=== PATIENT | female | born 1990 | race Caucasian/White ===

== ENCOUNTER 2025-08-16 10:23 | Outpatient (CLI) | payer BC ==
[2025-08-16 11:12] LABS: #Basophils 0.05 10x3/uL (0.0-0.2); #Eosinophils 0.18 10x3/uL (0.0-0.7); #Monocytes 0.36 10x3/uL (0.11-0.59); #Neutrophils 3.35 10x3/uL (1.40-6.50); %Basophils 0.8 % (0.0-1.0); %Eosinophils 3.0 % (0.0-10.0); %Lymphocytes 33.8 % (21.0-51.0); %Monocytes 6.0 % (0.0-10.0); %Neutrophils 56.2 % (42.0-75.0); Hematocrit 35.1 % (36.0-47.0); Hemoglobin 11.0 g/dL (12.0-16.0); Mean Corpuscular Hemoglobin 25.8 pg (27.0-31.0); Mean Corpuscular Volume 82.2 fL (78.0-98.0); Platelet Count 323 10x3/uL (130-400); Red Blood Cell (RBC) Count 4.27 mill/uL (4.20-5.40); White Blood Cell (WBC) Count 5.97 10x3/uL (4.8-10.8)
[2025-08-16 11:26] LABS: INR-International Normal Ratio 1.0; Prothrombin Time 13.2 sec (12.0-14.7)
[2025-08-16 11:27] LABS: PTT 33.4 sec (22.9-36.1)
[2025-08-16 11:33] LABS: BHCG - Serum Negative (NEGATIVE); Pregs Control Background? CLEAR/WHITE (CLR/WHITE); Pregs Control Bar Appear? YES (CONTROL BAR)
== END 2025-08-16 10:24 | disposition home or self-care (01) ==
LOC: LABBT 10:23
PROVIDERS: ATTEND Orthopaedic Surgery
DX: Z01.812 Encounter for preprocedural laboratory examination (principal); G56.01 Carpal tunnel syndrome, right upper limb; G56.21 Lesion of ulnar nerve, right upper limb
CPT/HCPCS: 84703; 85025; 85610; 85730

== ENCOUNTER 2025-08-18 09:09 | Day surgery (SDC) | payer BC ==
[2025-08-16 10:36] VITALS: BMI 23.3
[2025-08-18] MEDS ORDERED: fentaNYL PF 100 MCG/2 ML SYRINGE ONE (09:27)
[2025-08-18] MEDS ORDERED: PROPOFOL 40 ML ONE (09:27)
[2025-08-18] MEDS ORDERED: Lidocaine 1% PF 5 ML VIAL ONE (09:28)
[2025-08-18] MEDS ORDERED: CEFAZOLIN 2 GM VIAL ONE (10:44)
[2025-08-18] MEDS ORDERED: Ondansetron PF 4 MG/2 ML Vial ONE (11:33)
== END 2025-08-18 15:05 | disposition home or self-care (01) ==
LOC: SDC 09:09
PROVIDERS: ATTEND Orthopaedic Surgery
PROC: 01N54ZZ Release Median Nerve, Percutaneous Endoscopic Approach (ICD-10-PCS; principal; 2025-08-18)
PROC: 01N40ZZ Release Ulnar Nerve, Open Approach (ICD-10-PCS; principal; 2025-08-18)
DX: G56.03 Carpal tunnel syndrome, bilateral upper limbs (principal); G56.23 Lesion of ulnar nerve, bilateral upper limbs; Z90.79 Acquired absence of other genital organ(s)
CPT/HCPCS: A6223; J0665; J1100; J2250; J2405; J2704